=== PATIENT | female | born 1970 | race African-American/Black ===

== ENCOUNTER 2019-03-08 16:21 | Inpatient (IN) | payer OTHER ==
--- NOTE | 2019-03-08 19:05 | HP ---
CIWA Score Nausea/Vomitin-No Nausea/No Vomiting Muscle Tremors: 3 Anxiety: 3 Agitation: 4-Moderately Restless Paroxysmal Sweats: No Perspiration Orientation: 0-Oriented Tacttile Disturbances: 0-None Auditory Disturbances: 0-None Visual Disturbances: 0-None Headache: 0-None Present CIWA-Ar Total Score: 10 - Admission Criteria OASAS Guidelines: Admission for Medically Managed Detox: Requires at least one of the followin. CIWA greater than 12 2. Seizures within the past 24 hours 3. Delirium tremens within the past 24 hours 4. Hallucinations within the past 24 hours 5. Acute intervention needed for co occurring medical disorder 6. Acute intervention needed for co occurring psychiatric disorder 7. Severe withdrawal that cannot be handled at a lower level of care (continued vomiting, continued diarrhea, abnormal vital signs) requiring intravenous medication and/or fluids 8. Admission ROS S - HPI Allergies/Adverse Reactions: Allergies Allergy/AdvReac Type Severity Reaction Status Date / Time shellfish derived AdvReac Severe Difficulty Verified 03/08/19 17:29 Breathing History of Present Illness: pt here requesting detox from etoh use , claims 4 pints and 2 x 6-pk beer/ day , starts drinking in the mornings, relpased since 2012 , prior sobriety x 10 years . PMHX : asthma, eczema h/o + PPD w/ tx 1998 Exam Limitations: Clinical Condition - Ebola screening Have you traveled outside of the country in the last 21 days: No (N) Have you had contact with anyone from an Ebola affected area: No Do you have a fever: No - Review of Systems Constitutional: No Symptoms Reported EENT: reports: No Symptoms Reported Respiratory: reports: No Symptoms reported Cardiac: reports: No Symptoms Reported GI: reports: No Symptoms Reported : reports: No Symptoms Reported, Other (h/o tx for syphyllis @ age 11) Musculoskeletal: reports: No Symptoms Reported Integumentary: reports: Dryness Neuro: reports: Tremors Endocrine: reports: No Symptoms Reported Psychiatric: reports: Orientated x3, Agitated, Anxious Patient History - Smoking Cessation Smoking history: Current every day smoker Have you smoked in the past 12 months: Yes Hx Chewing Tobacco Use: No Initiated information on smoking cessation: No - Substances abused Alcohol Substance route: Oral Frequency: Daily Amount used: 4 PINTS VODKA AND 2 6- PACK beer Age of first use: 11 Date of last use: 03/08/19 Crack Substance route: Smoking Frequency: Daily Amount used: $200/DAY Age of first use: 12 Date of last use: 03/06/19 Marijuana/Hashish Substance route: Oral Frequency: Daily Amount used: $20/DAY Age of first use: 7 Date of last use: 03/01/19 Admission Physical Exam BHS - Vital Signs Vital Signs: Vital Signs - 24 hr 03/08/19 17:28 Temperature 98.8 F Pulse Rate 106 H Respiratory 18 Rate Blood Pressure 135/87 - Physical General Appearance: Yes: Mild Distress, Anxious HEENTM: Yes: EOMI, Hearing grossly Normal, Normocephalic, Muffled/Hoarse Voice, Other (poor dentition , many missing teeth) Respiratory: Yes: Chest Non-Tender, Lungs Clear, Normal Breath Sounds, No Respiratory Distress, No Accessory Muscle Use Neck: Yes: No masses,lesions,Nodules, Trachea in good position Cardiology: Yes: Regular Rhythm, Regular Rate, S1, S2, Tachycardia Abdominal: Yes: Non Tender, Soft Musculoskeletal: Yes: Gait Steady Extremities: Yes: Normal Range of Motion, Non-Tender, Tremors Neurological: Yes: Fully Oriented, Alert, Motor Strength 5/5, Depressed Affect Integumentary: Yes: Dry, Warm - Diagnostic (1) Alcohol use disorder Current Visit: Yes Status: Chronic Breathalyzer - Breathalyzer Breathalyzer: 0.002 Urine Drug Screen - Test Device Lot number: [id number] Expiration date: 09/16/20 - Control Is test valid?: Yes - Results Drug screen NEGATIVE: No Urine drug screen results: THC-Marijuana, HAI-Cocaine, BZO-Benzodiazepines Inpatient Rehab Admission - Rehab Decision to Admit Inpatient rehab admission?: No
[2019-03-08] MEDS ORDERED: BISMUTH SUBSALICYLATE 524 MG/30 ML UD PO PRN (19:09)
[2019-03-08] MEDS ORDERED: MAGNESIUM HYDROX 2400MG/30ML ORAL SUSPENSION 30 ML CUP PO PRN (19:09)
[2019-03-08] MEDS ORDERED: MAGNESIUM CITRATE 300 ML BOTTLE PO PRN (19:09)
[2019-03-08] MEDS ORDERED: ACETAMINOPHEN 325 MG TABLET (FP) PO PRN ×2 (19:09)
[2019-03-08] MEDS ORDERED: MAG HYDROX/AL HYDROX/SIMETH 30 ML UNIT-DOSE CUP PO PRN (19:09)
[2019-03-08] MEDS ORDERED: MENTHOL/PHENOL 1 EACH UD MM PRN (19:09)
[2019-03-08] MEDS ORDERED: MELATONIN 5 MG TABLETS PO PRN (19:09)
[2019-03-08] MEDS ORDERED: hydrOXYzine PAMOATE 25 MG CAPSULE (FP) PO PRN (19:09)
[2019-03-08] MEDS ORDERED: chlordiazePOXIDE HCL 10 MG CAPSULE PO PRN (19:11)
[2019-03-08] MEDS: THIAMINE HCL 100 MG TABLET (FP) PO SCH (22:19)
[2019-03-08] MEDS: chlordiazePOXIDE HCL 25 MG CAPSULE PO SCH (22:19)
[2019-03-08] MEDS: TOLNAFTATE 1% CREAM 15 GM TUBE TP SCH (22:19)
[2019-03-09] MEDS: chlordiazePOXIDE HCL 25 MG CAPSULE PO SCH ×3 (05:34→22:12)
[2019-03-09 09:29] LABS: HEMATOCRIT 39.5 % (32.4-45.2); MCH 31.1 pg (25.7-33.7); MCHC 32.9 g/dl (32.0-36.0); MEAN CELL VOLUME 94.5 fl (80-96); MEAN PLT VOLUME 7.7 fl (7.5-11.1); PLATELET COUNT 200 K/MM3 (134-434); RBC 4.18 M/mm3 (3.60-5.2)
--- NOTE | 2019-03-09 09:37 | PN ---
S CIWA - CIWA Score Nausea/Vomitin-Mild Nausea/No Vomiting Muscle Tremors: 2 Anxiety: 3 Agitation: 1-Slight > Activity Paroxysmal Sweats: 2 Orientation: 0-Oriented Tacttile Disturbances: 0-None Auditory Disturbances: 0-None Visual Disturbances: 1-Very Mild Sensitivity Headache: 2-Mild CIWA-Ar Total Score: 12 BHS Progress Note (SOAP) Subjective: 49 years old female admitted on 03/07/19 for alcohol withdrawal sx management treating with librium detox regimen feeling ok today less tremor but anxious and restlessness feeling tired limited conversation with staff Objective: 03/09/19 09:36 Vital Signs Temperature 99.5 F 03/09/19 09:12 Pulse Rate 97 H 03/09/19 09:12 Respiratory Rate 18 03/09/19 09:12 Blood Pressure 112/74 03/09/19 09:12 O2 Sat by Pulse Oximetry (%) Laboratory Last Values WBC 6.0 K/mm3 (4.0-10.0) 03/09/19 07:45 RBC 4.18 M/mm3 (3.60-5.2) 03/09/19 07:45 Hgb 13.0 GM/dL (10.7-15.3) 03/09/19 07:45 Hct 39.5 % (32.4-45.2) 03/09/19 07:45 MCV 94.5 fl (80-96) 03/09/19 07:45 MCH 31.1 pg (25.7-33.7) 03/09/19 07:45 MCHC 32.9 g/dl (32.0-36.0) 03/09/19 07:45 RDW 15.0 % (11.6-15.6) 03/09/19 07:45 Plt Count 200 K/MM3 (134-434) 03/09/19 07:45 MPV 7.7 fl (7.5-11.1) 03/09/19 07:45 lab noted Assessment: 03/09/19 09:37 alcohol withdrawal Plan: librium regimen
[2019-03-09] MEDS: TOLNAFTATE 1% CREAM 15 GM TUBE TP SCH ×2 (10:02→22:10)
[2019-03-09] MEDS: PRENATAL VITAMINS W/ FOLIC ACID TABLET (FP) PO SCH (10:02)
[2019-03-09] MEDS: HYDROCORTISONE 0.5% TOPICAL OINTMENT TUBE TP PRN (10:02)
[2019-03-09] MEDS: ALBUTEROL SO4 HFA INHALER IH PRN ×2 (10:03→22:11)
[2019-03-09 11:05] LABS: ALBUMIN 3.2 g/dl (3.4-5.0); BILIRUBIN,TOTAL 0.3 mg/dL (0.2-1); CALCIUM 8.4 mg/dL (8.5-10.1); CREATININE 1.1 mg/dL (0.55-1.3); POTASSIUM 3.9 mmol/L (3.5-5.1); TOT PROT 6.2 g/dl (6.4-8.2)
[2019-03-09] MEDS: THIAMINE HCL 100 MG TABLET (FP) PO SCH (22:12)
[2019-03-10] MEDS: chlordiazePOXIDE HCL 10 MG CAPSULE PO SCH ×3 (05:08→22:03)
[2019-03-10] MEDS: ALBUTEROL SO4 HFA INHALER IH PRN ×3 (05:09→22:51)
--- NOTE | 2019-03-10 09:10 | PN ---
S CIWA - CIWA Score Nausea/Vomitin-No Nausea/No Vomiting Muscle Tremors: 2 Anxiety: 2 Agitation: 2 Paroxysmal Sweats: 1-Minimal Palms Moist Orientation: 0-Oriented Tacttile Disturbances: 0-None Auditory Disturbances: 0-None Visual Disturbances: 0-None Headache: 2-Mild CIWA-Ar Total Score: 9 BHS Progress Note (SOAP) Subjective: 49 years old female admitted on 03/08/19 for alcohol withdrawal sx management treating with librium detox regimen feeling better today able to sleep through the night less tremor patient reflects insight to manage stresses Objective: 03/10/19 09:09 Vital Signs Temperature 99.4 F 03/10/19 09:05 Pulse Rate 86 03/10/19 09:05 Respiratory Rate 18 03/10/19 09:05 Blood Pressure 139/85 03/10/19 09:05 O2 Sat by Pulse Oximetry (%) Laboratory Last Values WBC 6.0 K/mm3 (4.0-10.0) 03/09/19 07:45 RBC 4.18 M/mm3 (3.60-5.2) 03/09/19 07:45 Hgb 13.0 GM/dL (10.7-15.3) 03/09/19 07:45 Hct 39.5 % (32.4-45.2) 03/09/19 07:45 MCV 94.5 fl (80-96) 03/09/19 07:45 MCH 31.1 pg (25.7-33.7) 03/09/19 07:45 MCHC 32.9 g/dl (32.0-36.0) 03/09/19 07:45 RDW 15.0 % (11.6-15.6) 03/09/19 07:45 Plt Count 200 K/MM3 (134-434) 03/09/19 07:45 MPV 7.7 fl (7.5-11.1) 03/09/19 07:45 Sodium 141 mmol/L (136-145) 03/09/19 07:45 Potassium 3.9 mmol/L (3.5-5.1) 03/09/19 07:45 Chloride 108 mmol/L (98-107) H 03/09/19 07:45 Carbon Dioxide 27 mmol/L (21-32) 03/09/19 07:45 Anion Gap 6 MMOL/L (8-16) L 03/09/19 07:45 BUN 22.0 mg/dL (7-18) H 03/09/19 07:45 Creatinine 1.1 mg/dL (0.55-1.3) 03/09/19 07:45 Est GFR (CKD-EPI)AfAm 67.32 03/09/19 07:45 Est GFR (CKD-EPI)NonAf 58.08 03/09/19 07:45 Random Glucose 180 mg/dL (74-106) H 03/09/19 07:45 Calcium 8.4 mg/dL (8.5-10.1) L 03/09/19 07:45 Total Bilirubin 0.3 mg/dL (0.2-1) 03/09/19 07:45 AST 22 U/L (15-37) 03/09/19 07:45 ALT 21 U/L (13-61) 03/09/19 07:45 Alkaline Phosphatase 133 U/L (45-117) H 03/09/19 07:45 Total Protein 6.2 g/dl (6.4-8.2) L 03/09/19 07:45 Albumin 3.2 g/dl (3.4-5.0) L 03/09/19 07:45 POC Urine HCG, Qual Negative 03/08/19 18:16 RPR Titer Nonreactive (NONREACTIVE) 03/09/19 07:45 lab noted Assessment: 03/10/19 09:09 alcohol withdrawal Plan: librium regiment
[2019-03-10] MEDS: PRENATAL VITAMINS W/ FOLIC ACID TABLET (FP) PO SCH (10:05)
[2019-03-10] MEDS: TOLNAFTATE 1% CREAM 15 GM TUBE TP SCH ×2 (10:06→22:02)
[2019-03-10] MEDS: HYDROCORTISONE 0.5% TOPICAL OINTMENT TUBE TP PRN (10:07)
--- NOTE | 2019-03-10 16:55 | PN ---
[facility] Progress Note Note: Patient was seen and evaluated at bedside with complaint of slight swelling to right chin with minimal discomfort. She reports pain at 2/10 and tolerable. Vital Signs Temperature 98.4 F 03/10/19 16:59 Pulse Rate 85 03/10/19 16:59 Respiratory Rate 18 03/10/19 16:59 Blood Pressure 129/82 03/10/19 16:59 O2 Sat by Pulse Oximetry (%) Action: Tylenol as needed Patient encouraged not to pick pimples on the face Keep area clean and dry. Use of hand artificial stone setter encouraged
[2019-03-10] MEDS: IBUPROFEN 400 MG TABLET (FP) PO PRN (17:51)
[2019-03-10] MEDS: THIAMINE HCL 100 MG TABLET (FP) PO SCH (22:03)
[2019-03-11] MEDS ORDERED: chlordiazePOXIDE HCL 10 MG CAPSULE PO ONE (05:00)
[2019-03-11] MEDS: IBUPROFEN 400 MG TABLET (FP) PO PRN (05:13)
[2019-03-11 06:58] VITALS: BP 101/66; PULSE 90; TEMP 96.5
[2019-03-11] MEDS: ALBUTEROL SO4 HFA INHALER IH PRN (07:52)
--- NOTE | 2019-03-11 09:25 | DS ---
[facility] Detox Discharge Summary Admission Date: 03/08/19 Discharge Date: 03/11/19 - History Present History: Alcohol Dependence Additional Comments: 49 years old female admitted on 03/08/19 for alcohol withdrawal sx management treated with librium detox regiment right chin swell seen by medical provider denies right chin discomfort today no swell noted speech clearly coherently ate breakfast no trouble chewing food nor drinking fluid patient has completed librium regimen and tolerated well alert oriented x 3 respiratory clear lungs bilaterally on auscultation extremities full range of motion skin warm and dry Pertinent Past History: patient agrees to consider return to [facility] - Physical Exam Results Vital Signs: Vital Signs Temperature 96.5 F L 03/11/19 06:57 Pulse Rate 90 03/11/19 06:57 Respiratory Rate 18 03/11/19 06:57 Blood Pressure 101/66 03/11/19 06:57 O2 Sat by Pulse Oximetry (%) Pertinent Admission Physical Exam Findings: alcohol withdrawal Laboratory Last Values WBC 6.0 K/mm3 (4.0-10.0) 03/09/19 07:45 RBC 4.18 M/mm3 (3.60-5.2) 03/09/19 07:45 Hgb 13.0 GM/dL (10.7-15.3) 03/09/19 07:45 Hct 39.5 % (32.4-45.2) 03/09/19 07:45 MCV 94.5 fl (80-96) 03/09/19 07:45 MCH 31.1 pg (25.7-33.7) 03/09/19 07:45 MCHC 32.9 g/dl (32.0-36.0) 03/09/19 07:45 RDW 15.0 % (11.6-15.6) 03/09/19 07:45 Plt Count 200 K/MM3 (134-434) 03/09/19 07:45 MPV 7.7 fl (7.5-11.1) 03/09/19 07:45 Sodium 141 mmol/L (136-145) 03/09/19 07:45 Potassium 3.9 mmol/L (3.5-5.1) 03/09/19 07:45 Chloride 108 mmol/L (98-107) H 03/09/19 07:45 Carbon Dioxide 27 mmol/L (21-32) 03/09/19 07:45 Anion Gap 6 MMOL/L (8-16) L 03/09/19 07:45 BUN 22.0 mg/dL (7-18) H 03/09/19 07:45 Creatinine 1.1 mg/dL (0.55-1.3) 03/09/19 07:45 Est GFR (CKD-EPI)AfAm 67.32 03/09/19 07:45 Est GFR (CKD-EPI)NonAf 58.08 03/09/19 07:45 Random Glucose 180 mg/dL (74-106) H 03/09/19 07:45 Calcium 8.4 mg/dL (8.5-10.1) L 03/09/19 07:45 Total Bilirubin 0.3 mg/dL (0.2-1) 03/09/19 07:45 AST 22 U/L (15-37) 03/09/19 07:45 ALT 21 U/L (13-61) 03/09/19 07:45 Alkaline Phosphatase 133 U/L (45-117) H 03/09/19 07:45 Total Protein 6.2 g/dl (6.4-8.2) L 03/09/19 07:45 Albumin 3.2 g/dl (3.4-5.0) L 03/09/19 07:45 POC Urine HCG, Qual Negative 03/08/19 18:16 RPR Titer Nonreactive (NONREACTIVE) 03/09/19 07:45 lab noted - Treatment Hospital Course: Detox Protocol Followed, Detoxed Safely, Responded well, Discharged Condition Good, Rehab Referral Accepted Patient has Accepted a Re[facility] Referral to: [facility] - Medication Discharge Medications: Ambulatory Orders NK [No Known Home Medication] 03/08/19 - Diagnosis (1) Alcohol dependence with withdrawal, uncomplicated Status: Acute - AMA Did Patient Leave Against Medical Advice: No CIWA Score - CIWA Score Nausea/Vomitin-No Nausea/No Vomiting Muscle Tremors: 1-None Visible, but [place] Anxiety: 1-Mildly Anxious Agitation: 1-Slight > Activity Paroxysmal Sweats: No Perspiration Orientation: 0-Oriented Tacttile Disturbances: 0-None Auditory Disturbances: 0-None Visual Disturbances: 0-None Headache: 2-Mild CIWA-Ar Total Score: 5
== END 2019-03-11 08:42 | disposition home or self-care (01) | DRG 774 ==
LOC: YASAS 16:21 → Y3N 19:20
PROVIDERS: ADMIT Allergy & Immunology; ATTEND Allergy & Immunology
PROC: HZ2ZZZZ Detoxification Services for Substance Abuse Treatment (ICD-10-PCS; principal; 2019-03-08)
DX: F10.230 Alcohol dependence with withdrawal, uncomplicated (principal); F14.20 Cocaine dependence, uncomplicated; F12.20 Cannabis dependence, uncomplicated; F17.210 Nicotine dependence, cigarettes, uncomplicated; Z91.013 Allergy to seafood
CPT/HCPCS: 36415; 71045-TC-FY; 80053; 81025; 85027; 86593

== ENCOUNTER 2021-03-31 13:39 | Inpatient (IN) | payer OTHER ==
[2021-03-31 15:25] VITALS: BMI 37.3
[2021-03-31] MEDS ORDERED: MAG HYDROX/AL HYDROX/SIMETH 30 ML UNIT-DOSE CUP PO PRN (20:44)
[2021-03-31] MEDS ORDERED: ONDANSETRON *ODT* 4 MG TABLET SL PRN (20:44)
[2021-03-31] MEDS ORDERED: MAGNESIUM HYDROX 2400MG/30ML ORAL SUSPENSION 30 ML CUP PO PRN (20:44)
[2021-03-31] MEDS ORDERED: ACETAMINOPHEN 325 MG TABLET (FP) PO PRN ×2 (20:44)
[2021-03-31] MEDS ORDERED: NICOTINE POLACRILEX 2 MG GUM BUC PRN (20:44)
[2021-03-31] MEDS ORDERED: LOPERAMIDE HCL 2 MG CAPSULE PO PRN (20:44)
[2021-03-31] MEDS ORDERED: chlordiazePOXIDE HCL 25 MG CAPSULE PO PRN (20:44)
[2021-03-31] MEDS ORDERED: MELATONIN 5 MG TABLETS PO PRN (20:44)
[2021-03-31] MEDS ORDERED: BISMUTH SUBSALICYLATE 524 MG/30 ML PO PRN (20:44)
[2021-03-31] MEDS ORDERED: MENTHOL/PHENOL 1 EACH UD MM PRN (20:44)
[2021-03-31] MEDS ORDERED: IBUPROFEN 400 MG TABLET (FP) PO PRN (20:44)
[2021-03-31] MEDS ORDERED: MAGNESIUM CITRATE 300 ML BOTTLE PO PRN (20:44)
[2021-03-31] MEDS: THIAMINE HCL 100 MG TABLET (FP) PO SCH (22:34)
[2021-03-31] MEDS: chlordiazePOXIDE HCL 25 MG CAPSULE PO SCH (22:35)
[2021-04-01] MEDS: chlordiazePOXIDE HCL 25 MG CAPSULE PO SCH ×3 (06:41→17:43)
[2021-04-01] MEDS: INSULIN SLIDING SCALE (NOVOLOG) 1 VIAL SQ SCH ×3 (06:54→17:46)
[2021-04-01] MEDS ORDERED: BUDESONIDE/FORMETEROL FUMARATE 160/4.5 mcg INHALER IH SCH (10:00)
[2021-04-01] MEDS: METHOCARBAMOL 500 MG TABLET PO PRN (11:05)
[2021-04-01] MEDS: PRENATAL VITAMINS W/ FOLIC ACID TABLET (FP) PO SCH (11:05)
[2021-04-01 11:16] LABS: HEMATOCRIT 42.5 % (32.4-45.2); HEMOGLOBIN 13.6 GM/dL (10.7-15.3); MCH 29.7 pg (25.7-33.7); MEAN PLT VOLUME 7.9 fl (7.5-11.1); PLATELET COUNT 211 10^3/uL (134-434); RBC 4.57 M/mm3 (3.60-5.2); RDW 14.5 % (11.6-15.6); WHITE BLOOD COUNT 4.9 K/mm3 (4.0-10.0)
[2021-04-01 11:26] LABS: ALBUMIN 3.4 g/dl (3.4-5.0); BLOOD UREA NITROGEN 14.3 mg/dL (7-18); CALCIUM 8.8 mg/dL (8.5-10.1)
[2021-04-01 11:30] LABS: BILIRUBIN,TOTAL 0.3 mg/dL (0.2-1); TOT PROT 6.5 g/dl (6.4-8.2)
[2021-04-01] MEDS: metFORMIN HCL 500 MG TABLET (FP) PO SCH (17:44)
[2021-04-01] MEDS: THIAMINE HCL 100 MG TABLET (FP) PO SCH (23:34)
[2021-04-02] MEDS: chlordiazePOXIDE HCL 25 MG CAPSULE PO SCH ×3 (00:10→10:20)
[2021-04-02] MEDS: metFORMIN HCL 500 MG TABLET (FP) PO SCH ×2 (06:09→17:48)
[2021-04-02] MEDS: INSULIN SLIDING SCALE (NOVOLOG) 1 VIAL SQ SCH ×3 (06:10→16:40)
[2021-04-02] MEDS: PRENATAL VITAMINS W/ FOLIC ACID TABLET (FP) PO SCH (10:17)
[2021-04-02] MEDS: NICOTINE 10 MG CARTRIDGE (INHALER) IH PRN ×3 (10:30→20:05)
[2021-04-02] MEDS ORDERED: chlordiazePOXIDE HCL 25 MG CAPSULE PO SCH ×2 (17:00→23:00)
[2021-04-02] MEDS ORDERED: INSULIN (NOVOLOG) ASPART 100 UNITS/ML 10ML VIAL ONE (17:02)
[2021-04-02] MEDS ORDERED: chlordiazePOXIDE HCL 10 MG CAPSULE PO SCH (23:00)
[2021-04-02] MEDS: THIAMINE HCL 100 MG TABLET (FP) PO SCH (23:30)
[2021-04-03] MEDS ORDERED: chlordiazePOXIDE HCL 10 MG CAPSULE PO PRN
[2021-04-03] MEDS: ALBUTEROL SO4 HFA INHALER IH PRN ×2 (05:54→22:17)
[2021-04-03] MEDS: chlordiazePOXIDE HCL 10 MG CAPSULE PO SCH ×4 (05:58→22:18)
[2021-04-03] MEDS: INSULIN SLIDING SCALE (NOVOLOG) 1 VIAL SQ SCH ×3 (05:59→16:23)
[2021-04-03] MEDS: metFORMIN HCL 500 MG TABLET (FP) PO SCH ×2 (05:59→16:00)
[2021-04-03] MEDS: PRENATAL VITAMINS W/ FOLIC ACID TABLET (FP) PO SCH (10:03)
[2021-04-03] MEDS: NICOTINE 10 MG CARTRIDGE (INHALER) IH PRN ×2 (13:22→18:00)
[2021-04-03 14:10] LABS: SARS-CoV-2 NAA Not Detected (Not Detected)
[2021-04-03] MEDS: THIAMINE HCL 100 MG TABLET (FP) PO SCH (22:17)
[2021-04-04] MEDS: chlordiazePOXIDE HCL 10 MG CAPSULE PO SCH ×2 (06:43→18:03)
[2021-04-04] MEDS: metFORMIN HCL 500 MG TABLET (FP) PO SCH ×2 (06:43→18:26)
[2021-04-04] MEDS: INSULIN SLIDING SCALE (NOVOLOG) 1 VIAL SQ SCH ×3 (06:45→17:04)
[2021-04-04] MEDS: METHOCARBAMOL 500 MG TABLET PO PRN (10:48)
[2021-04-04] MEDS: PRENATAL VITAMINS W/ FOLIC ACID TABLET (FP) PO SCH (10:48)
[2021-04-04] MEDS: ALBUTEROL SO4 HFA INHALER IH PRN (10:50)
[2021-04-04] MEDS: NICOTINE 10 MG CARTRIDGE (INHALER) IH PRN ×2 (15:21→22:30)
[2021-04-05] MEDS: THIAMINE HCL 100 MG TABLET (FP) PO SCH (00:40)
[2021-04-05] MEDS ORDERED: chlordiazePOXIDE HCL 10 MG CAPSULE PO ONE (05:00)
[2021-04-05] MEDS: metFORMIN HCL 500 MG TABLET (FP) PO SCH (07:25)
[2021-04-05] MEDS: INSULIN SLIDING SCALE (NOVOLOG) 1 VIAL SQ SCH (07:32)
[2021-04-05 09:11] VITALS: BP 121/80; PULSE 78; TEMP 97.8
== END 2021-04-05 09:13 | disposition home or self-care (01) | DRG 774 ==
LOC: YASAS 13:39 → Y6N 21:04
PROVIDERS: ADMIT Allergy & Immunology; ATTEND Allergy & Immunology
PROC: HZ2ZZZZ Detoxification Services for Substance Abuse Treatment (ICD-10-PCS; principal; 2021-03-31)
DX: F10.230 Alcohol dependence with withdrawal, uncomplicated (principal); F14.20 Cocaine dependence, uncomplicated; F12.20 Cannabis dependence, uncomplicated; F17.210 Nicotine dependence, cigarettes, uncomplicated; F31.9 Bipolar disorder, unspecified; H55.00 Unspecified nystagmus; E11.9 Type 2 diabetes mellitus without complications; Z79.84 Long term (current) use of oral hypoglycemic drugs; E66.9 Obesity, unspecified; Z68.37 Body mass index [BMI] 37.0-37.9, adult; Z86.11 Personal history of tuberculosis; Z86.19 Personal history of other infectious and parasitic diseases; Z91.013 Allergy to seafood
CPT/HCPCS: 36415; 80053; 81025; 82962; 85027; 86593; 86780; C9803; U0003; U0005

== ENCOUNTER 2022-01-23 10:59 | Inpatient (IN) | payer OTHER ==
[2022-01-23 13:06] VITALS: BMI 32.8
[2022-01-23] MEDS ORDERED: BENZOCAINE/MENTHOL (CHLORASEPTIC ) LOZENGE MM PRN (13:24)
[2022-01-23] MEDS ORDERED: hydrOXYzine PAMOATE 25 MG CAPSULE (FP) PO PRN (13:24)
[2022-01-23] MEDS ORDERED: NALOXONE HCL (KLOXXADO) 8 MG SPRAY NS PRN (13:24)
[2022-01-23] MEDS ORDERED: LOPERAMIDE HCL 2 MG CAPSULE PO PRN (13:24)
[2022-01-23] MEDS ORDERED: POLYETHYLENE GLYCOL (HEALTHYLAX) 3350 17 GM PACKET PO PRN (13:24)
[2022-01-23] MEDS ORDERED: DICYCLOMINE HCL 10 MG CAPSULE PO PRN (13:24)
[2022-01-23] MEDS ORDERED: chlordiazePOXIDE HCL 25 MG CAPSULE PO PRN (13:24)
[2022-01-23] MEDS ORDERED: ACETAMINOPHEN 325 MG TABLET (FP) PO PRN ×2 (13:24)
[2022-01-23] MEDS ORDERED: MAGNESIUM HYDROX 2400MG/30ML ORAL SUSPENSION 30 ML CUP PO PRN (13:24)
[2022-01-23] MEDS ORDERED: BISMUTH SUBSALICYLATE 524 MG/30 ML PO PRN (13:24)
[2022-01-23] MEDS ORDERED: IBUPROFEN 400 MG TABLET (FP) PO PRN (13:24)
[2022-01-23] MEDS ORDERED: MAG HYDROX/AL HYDROX/SIMETH 30 ML UNIT-DOSE CUP PO PRN (13:24)
[2022-01-23] MEDS ORDERED: ONDANSETRON *ODT* 4 MG TABLET SL PRN (13:24)
[2022-01-23] MEDS: PRENATAL VITAMINS W/ FOLIC ACID TABLET (FP) PO SCH (15:30)
[2022-01-23] MEDS: ALBUTEROL SO4 HFA INHALER IH SCH ×3 (15:30→23:36)
[2022-01-23] MEDS: BUDESONIDE/FORMETEROL FUMARATE 160/4.5 mcg INHALER IH SCH ×2 (15:30→22:12)
[2022-01-23] MEDS: NICOTINE 14 MG/24 HOURS TOPICAL PATCH TD SCH (15:30)
[2022-01-23] MEDS: chlordiazePOXIDE HCL 25 MG CAPSULE PO SCH ×2 (18:07→23:37)
[2022-01-23] MEDS: METHOCARBAMOL 500 MG TABLET PO PRN (18:10)
[2022-01-23] MEDS: metFORMIN HCL 500 MG TABLET (FP) PO SCH (18:10)
[2022-01-23] MEDS: THIAMINE HCL 100 MG TABLET (FP) PO SCH (22:14)
[2022-01-23] MEDS: MELATONIN 5 MG TABLETS PO SCH (23:35)
[2022-01-24] MEDS: metFORMIN HCL 500 MG TABLET (FP) PO SCH ×2 (06:26→16:47)
[2022-01-24] MEDS: chlordiazePOXIDE HCL 25 MG CAPSULE PO SCH ×4 (06:26→22:45)
[2022-01-24] MEDS: ALBUTEROL SO4 HFA INHALER IH SCH ×4 (10:24→22:44)
[2022-01-24] MEDS: BUDESONIDE/FORMETEROL FUMARATE 160/4.5 mcg INHALER IH SCH ×2 (10:24→22:43)
[2022-01-24] MEDS: NICOTINE 14 MG/24 HOURS TOPICAL PATCH TD SCH (10:24)
[2022-01-24] MEDS: PRENATAL VITAMINS W/ FOLIC ACID TABLET (FP) PO SCH (10:24)
[2022-01-24] MEDS: NICOTINE 10 MG CARTRIDGE (INHALER) IH PRN (10:25)
[2022-01-24 10:28] LABS: HEMATOCRIT 45.4 % (32.4-45.2); HEMOGLOBIN 14.7 GM/dL (10.7-15.3); MCH 30.6 pg (25.7-33.7); MCHC 32.3 g/dl (32.0-36.0); MEAN CELL VOLUME 94.5 fl (80-96); MEAN PLT VOLUME 8.1 fl (7.5-11.1); PLATELET COUNT 243 10^3/uL (134-434); RBC 4.81 M/mm3 (3.60-5.2); RDW 14.1 % (11.6-15.6); WHITE BLOOD COUNT 6.7 K/mm3 (4.0-10.0)
[2022-01-24 11:13] LABS: CALCIUM 9.5 mg/dL (8.5-10.1)
[2022-01-24 11:15] LABS: ALBUMIN 3.5 g/dl (3.4-5.0); BLOOD UREA NITROGEN 18.4 mg/dL (7-18)
[2022-01-24 11:18] LABS: CREATININE 1.1 mg/dL (0.55-1.3)
[2022-01-24 11:20] LABS: BILIRUBIN,TOTAL 0.4 mg/dL (0.2-1); TOT PROT 6.9 g/dl (6.4-8.2)
[2022-01-24] MEDS: BENZTROPINE MESYLATE 1 MG TABLET PO SCH ×2 (11:31→22:44)
[2022-01-24] MEDS: risperiDONE 1 MG TABLET PO SCH ×2 (11:31→22:44)
[2022-01-24] MEDS: MELATONIN 5 MG TABLETS PO SCH (22:42)
[2022-01-24] MEDS: THIAMINE HCL 100 MG TABLET (FP) PO SCH (22:44)
[2022-01-25] MEDS ORDERED: chlordiazePOXIDE HCL 25 MG CAPSULE PO SCH (05:00)
[2022-01-25] MEDS: metFORMIN HCL 500 MG TABLET (FP) PO SCH ×2 (06:32→17:40)
[2022-01-25] MEDS: PRENATAL VITAMINS W/ FOLIC ACID TABLET (FP) PO SCH (10:03)
[2022-01-25] MEDS: NICOTINE 14 MG/24 HOURS TOPICAL PATCH TD SCH (10:04)
[2022-01-25] MEDS: BENZTROPINE MESYLATE 1 MG TABLET PO SCH ×2 (10:04→22:26)
[2022-01-25] MEDS: risperiDONE 1 MG TABLET PO SCH ×2 (10:04→22:26)
[2022-01-25] MEDS: IBUPROFEN 600 MG TABLET (FP) PO PRN ×2 (10:05→20:50)
[2022-01-25] MEDS: METHOCARBAMOL 500 MG TABLET PO PRN ×2 (10:05→20:51)
[2022-01-25] MEDS: ALBUTEROL SO4 HFA INHALER IH SCH ×4 (10:07→22:31)
[2022-01-25] MEDS: BUDESONIDE/FORMETEROL FUMARATE 160/4.5 mcg INHALER IH SCH ×2 (10:07→22:31)
[2022-01-25] MEDS: chlordiazePOXIDE 5 MG CAPSULE PO SCH ×3 (11:02→22:27)
[2022-01-25] MEDS: MELATONIN 5 MG TABLETS PO SCH (22:27)
[2022-01-25] MEDS: THIAMINE HCL 100 MG TABLET (FP) PO SCH (22:31)
[2022-01-26] MEDS ORDERED: chlordiazePOXIDE HCL 10 MG CAPSULE PO PRN
[2022-01-26] MEDS: chlordiazePOXIDE HCL 10 MG CAPSULE PO SCH ×4 (05:55→23:57)
[2022-01-26] MEDS: metFORMIN HCL 500 MG TABLET (FP) PO SCH ×2 (06:20→17:51)
[2022-01-26] MEDS: BUDESONIDE/FORMETEROL FUMARATE 160/4.5 mcg INHALER IH SCH ×2 (10:19→22:36)
[2022-01-26] MEDS: BENZTROPINE MESYLATE 1 MG TABLET PO SCH ×2 (10:20→22:34)
[2022-01-26] MEDS: risperiDONE 1 MG TABLET PO SCH ×2 (10:20→22:34)
[2022-01-26] MEDS: PRENATAL VITAMINS W/ FOLIC ACID TABLET (FP) PO SCH (10:21)
[2022-01-26] MEDS: NICOTINE 14 MG/24 HOURS TOPICAL PATCH TD SCH (10:21)
[2022-01-26] MEDS: ALBUTEROL SO4 HFA INHALER IH SCH ×4 (10:24→22:36)
[2022-01-26] MEDS: MELATONIN 5 MG TABLETS PO SCH (22:36)
[2022-01-26] MEDS: THIAMINE HCL 100 MG TABLET (FP) PO SCH (22:36)
[2022-01-26] MEDS: NICOTINE 10 MG CARTRIDGE (INHALER) IH PRN (23:19)
[2022-01-27] MEDS: metFORMIN HCL 500 MG TABLET (FP) PO SCH ×2 (06:31→18:48)
[2022-01-27] MEDS: chlordiazePOXIDE HCL 10 MG CAPSULE PO SCH ×2 (06:31→18:46)
[2022-01-27] MEDS: BUDESONIDE/FORMETEROL FUMARATE 160/4.5 mcg INHALER IH SCH ×2 (10:12→23:38)
[2022-01-27] MEDS: PRENATAL VITAMINS W/ FOLIC ACID TABLET (FP) PO SCH (10:13)
[2022-01-27] MEDS: NICOTINE 14 MG/24 HOURS TOPICAL PATCH TD SCH (10:13)
[2022-01-27] MEDS: BENZTROPINE MESYLATE 1 MG TABLET PO SCH ×2 (10:13→23:36)
[2022-01-27] MEDS: risperiDONE 1 MG TABLET PO SCH ×2 (10:13→23:37)
[2022-01-27] MEDS: ALBUTEROL SO4 HFA INHALER IH SCH ×4 (10:14→23:38)
[2022-01-27] MEDS: METHOCARBAMOL 500 MG TABLET PO PRN (18:49)
[2022-01-27 22:43] VITALS: RESP 18
[2022-01-27] MEDS: MELATONIN 5 MG TABLETS PO SCH (23:36)
[2022-01-27] MEDS: THIAMINE HCL 100 MG TABLET (FP) PO SCH (23:38)
[2022-01-27] MEDS: NICOTINE 10 MG CARTRIDGE (INHALER) IH PRN (23:56)
[2022-01-28] MEDS ORDERED: chlordiazePOXIDE HCL 10 MG CAPSULE PO ONE (05:00)
[2022-01-28] MEDS: metFORMIN HCL 500 MG TABLET (FP) PO SCH (06:04)
[2022-01-28 09:48] VITALS: BP 128/84; PULSE 88; TEMP 98.2
[2022-01-28] MEDS: BUDESONIDE/FORMETEROL FUMARATE 160/4.5 mcg INHALER IH SCH (09:58)
[2022-01-28] MEDS: ALBUTEROL SO4 HFA INHALER IH SCH (09:58)
[2022-01-28] MEDS: risperiDONE 1 MG TABLET PO SCH (09:59)
[2022-01-28] MEDS: NICOTINE 14 MG/24 HOURS TOPICAL PATCH TD SCH (09:59)
[2022-01-28] MEDS: BENZTROPINE MESYLATE 1 MG TABLET PO SCH (09:59)
[2022-01-28] MEDS: PRENATAL VITAMINS W/ FOLIC ACID TABLET (FP) PO SCH (09:59)
== END 2022-01-28 10:21 | disposition home or self-care (01) | DRG 774 ==
LOC: YASAS 10:59 → Y3N 13:33
PROVIDERS: ADMIT Allergy & Immunology; ATTEND Surgery
PROC: HZ2ZZZZ Detoxification Services for Substance Abuse Treatment (ICD-10-PCS; principal; 2022-01-23)
DX: F10.230 Alcohol dependence with withdrawal, uncomplicated (principal); F14.20 Cocaine dependence, uncomplicated; F12.20 Cannabis dependence, uncomplicated; F17.210 Nicotine dependence, cigarettes, uncomplicated; F19.24 Other psychoactive substance dependence with psychoactive substance-induced mood disorder; F31.9 Bipolar disorder, unspecified; F20.9 Schizophrenia, unspecified; F39 Unspecified mood [affective] disorder; F41.9 Anxiety disorder, unspecified; E11.9 Type 2 diabetes mellitus without complications; Z79.84 Long term (current) use of oral hypoglycemic drugs; M17.11 Unilateral primary osteoarthritis, right knee; E66.9 Obesity, unspecified; Z68.32 Body mass index [BMI] 32.0-32.9, adult; Z89.021 Acquired absence of right finger(s); Z86.19 Personal history of other infectious and parasitic diseases; Z86.11 Personal history of tuberculosis; Z56.0 Unemployment, unspecified; Z59.00 Homelessness unspecified
CPT/HCPCS: 36415; 80053; 81025; 82140; 82962; 85027; 86593; 86780; 87811; C9803-CS; J2794; U0003; U0005

== ENCOUNTER 2022-12-27 15:04 | Inpatient (IN) | payer OTHER ==
[2022-12-27 17:37] VITALS: BMI 35.2
[2022-12-27] MEDS ORDERED: hydrOXYzine PAMOATE 25 MG CAPSULE (FP) PO PRN (18:55)
[2022-12-27] MEDS ORDERED: NICOTINE POLACRILEX 2 MG GUM BUC PRN (18:55)
[2022-12-27] MEDS ORDERED: IBUPROFEN 400 MG TABLET (FP) PO PRN (18:55)
[2022-12-27] MEDS ORDERED: NALOXONE HCL 0.4 MG/ML VIAL IM PRN (18:55)
[2022-12-27] MEDS ORDERED: DICYCLOMINE HCL 10 MG CAPSULE PO PRN (18:55)
[2022-12-27] MEDS ORDERED: NALOXONE HCL (KLOXXADO) 8 MG SPRAY NS PRN (18:55)
[2022-12-27] MEDS ORDERED: ONDANSETRON *ODT* 4 MG TABLET SL PRN (18:55)
[2022-12-27] MEDS ORDERED: BENZONATATE 200 MG CAPSULE PO PRN (18:55)
[2022-12-27] MEDS ORDERED: ACETAMINOPHEN 325 MG TABLET (FP) PO PRN (18:55)
[2022-12-27] MEDS ORDERED: METHOCARBAMOL 500 MG TABLET PO PRN (18:55)
[2022-12-27] MEDS ORDERED: IBUPROFEN 600 MG TABLET (FP) PO PRN (18:55)
[2022-12-27] MEDS ORDERED: guaiFENesin 600 MG TABLET.ER (FP) PO PRN (18:55)
[2022-12-27] MEDS ORDERED: MAG HYDROX/AL HYDROX/SIMETH 30 ML UNIT-DOSE CUP PO PRN (18:55)
[2022-12-27] MEDS ORDERED: chlordiazePOXIDE HCL 25 MG CAPSULE PO PRN (18:55)
[2022-12-27] MEDS ORDERED: MAGNESIUM HYDROX 2400MG/30ML ORAL SUSPENSION 30 ML CUP PO PRN (18:55)
[2022-12-27] MEDS ORDERED: POLYETHYLENE GLYCOL (HEALTHYLAX) 3350 17 GM PACKET PO PRN (18:55)
[2022-12-27] MEDS ORDERED: BISMUTH SUBSALICYLATE 524 MG/30 ML PO PRN (18:55)
[2022-12-27] MEDS ORDERED: LOPERAMIDE HCL 2 MG CAPSULE PO PRN (18:55)
[2022-12-27] MEDS ORDERED: BENZOCAINE/MENTHOL (CHLORASEPTIC ) LOZENGE MM PRN (18:55)
[2022-12-27] MEDS ORDERED: ALBUTEROL SO4 HFA INHALER IH PRN (19:59)
[2022-12-27] MEDS ORDERED: GABAPENTIN 400 MG CAPSULE PO SCH (22:00)
[2022-12-27] MEDS: THIAMINE HCL 100 MG TABLET (FP) PO SCH (22:19)
[2022-12-27] MEDS: GABAPENTIN 300 MG CAPSULE PO SCH (22:19)
[2022-12-27] MEDS: MELATONIN 5 MG TABLETS PO SCH (22:19)
[2022-12-27] MEDS: BUDESONIDE/FORMETEROL FUMARATE 160/4.5 mcg INHALER IH SCH (22:20)
[2022-12-27] MEDS: chlordiazePOXIDE HCL 25 MG CAPSULE PO SCH (22:20)
[2022-12-28] MEDS: chlordiazePOXIDE HCL 25 MG CAPSULE PO SCH ×4 (05:57→22:06)
[2022-12-28] MEDS: metFORMIN HCL 500 MG TABLET (FP) PO SCH ×2 (06:47→16:47)
[2022-12-28] MEDS: PRENATAL VITAMINS W/ FOLIC ACID TABLET (FP) PO SCH (10:20)
[2022-12-28] MEDS: GABAPENTIN 300 MG CAPSULE PO SCH ×2 (10:20→22:06)
[2022-12-28] MEDS: BUDESONIDE/FORMETEROL FUMARATE 160/4.5 mcg INHALER IH SCH ×2 (10:20→22:06)
[2022-12-28] MEDS: NICOTINE 14 MG/24 HOURS TOPICAL PATCH TD SCH (10:22)
[2022-12-28 16:04] LABS: CHLORIDE 108 mmol/L (98-107); POTASSIUM 3.8 mmol/L (3.5-5.1); SODIUM 142 mmol/L (136-145)
[2022-12-28 16:07] LABS: HEMOGLOBIN 13.2 GM/dL (10.7-15.3); MCH 30.7 pg (25.7-33.7); MCHC 33.8 g/dl (32.0-36.0); MEAN CELL VOLUME 90.9 fl (80-96); MEAN PLT VOLUME 7.7 fl (7.5-11.1); PLATELET COUNT 228 10^3/uL (134-434); RBC 4.29 M/mm3 (3.60-5.2); RDW 14.6 % (11.6-15.6); WHITE BLOOD COUNT 5.4 K/mm3 (4.0-10.0)
[2022-12-28 16:13] LABS: ALBUMIN 3.2 g/dl (3.4-5.0); CREATININE 0.9 mg/dL (0.55-1.3)
[2022-12-28 16:14] LABS: BLOOD UREA NITROGEN 13.5 mg/dL (7-18); TOT PROT 6.1 g/dl (6.4-8.2)
[2022-12-28 16:15] LABS: ALK PHOS 100 U/L (45-117); BILIRUBIN,TOTAL 0.2 mg/dL (0.2-1)
[2022-12-28 16:16] LABS: ANION GAP 6 mmol/L (4-13); CALCIUM 8.5 mg/dL (8.5-10.1); CO2 27 mmol/L (21-32); GLUCOSE,RANDOM 176 mg/dL (74-106); SGOT/AST 15 U/L (15-37)
[2022-12-28 16:17] LABS: SGPT/ALT 24 U/L (13-61)
[2022-12-28] MEDS: MELATONIN 5 MG TABLETS PO SCH (22:06)
[2022-12-28] MEDS: THIAMINE HCL 100 MG TABLET (FP) PO SCH (22:06)
[2022-12-29] MEDS: chlordiazePOXIDE HCL 25 MG CAPSULE PO SCH ×4 (05:50→22:17)
[2022-12-29] MEDS: metFORMIN HCL 500 MG TABLET (FP) PO SCH ×2 (06:05→17:20)
[2022-12-29] MEDS: PRENATAL VITAMINS W/ FOLIC ACID TABLET (FP) PO SCH (10:18)
[2022-12-29] MEDS: BUDESONIDE/FORMETEROL FUMARATE 160/4.5 mcg INHALER IH SCH ×2 (10:18→22:16)
[2022-12-29] MEDS: NICOTINE 14 MG/24 HOURS TOPICAL PATCH TD SCH (10:18)
[2022-12-29] MEDS: GABAPENTIN 300 MG CAPSULE PO SCH ×2 (10:20→22:16)
[2022-12-29] MEDS: MELATONIN 5 MG TABLETS PO SCH (22:16)
[2022-12-29] MEDS: THIAMINE HCL 100 MG TABLET (FP) PO SCH (22:17)
[2022-12-30] MEDS ORDERED: chlordiazePOXIDE HCL 10 MG CAPSULE PO PRN
[2022-12-30] MEDS: chlordiazePOXIDE HCL 10 MG CAPSULE PO SCH ×4 (05:49→22:13)
[2022-12-30] MEDS: metFORMIN HCL 500 MG TABLET (FP) PO SCH ×2 (06:06→17:12)
[2022-12-30] MEDS: BUDESONIDE/FORMETEROL FUMARATE 160/4.5 mcg INHALER IH SCH ×2 (10:24→22:15)
[2022-12-30] MEDS: GABAPENTIN 300 MG CAPSULE PO SCH ×2 (10:24→22:13)
[2022-12-30] MEDS: PRENATAL VITAMINS W/ FOLIC ACID TABLET (FP) PO SCH (10:26)
[2022-12-30] MEDS: NICOTINE 14 MG/24 HOURS TOPICAL PATCH TD SCH (10:26)
[2022-12-30] MEDS: MELATONIN 5 MG TABLETS PO SCH (22:13)
[2022-12-30] MEDS: THIAMINE HCL 100 MG TABLET (FP) PO SCH (22:15)
[2022-12-31] MEDS: chlordiazePOXIDE HCL 10 MG CAPSULE PO SCH ×2 (05:43→17:04)
[2022-12-31] MEDS: metFORMIN HCL 500 MG TABLET (FP) PO SCH ×2 (06:08→17:04)
[2022-12-31 08:39] VITALS: RESP 18
[2022-12-31] MEDS: BUDESONIDE/FORMETEROL FUMARATE 160/4.5 mcg INHALER IH SCH ×2 (10:19→22:47)
[2022-12-31] MEDS: GABAPENTIN 300 MG CAPSULE PO SCH ×2 (10:19→22:46)
[2022-12-31] MEDS: PRENATAL VITAMINS W/ FOLIC ACID TABLET (FP) PO SCH (10:19)
[2022-12-31] MEDS: NICOTINE 14 MG/24 HOURS TOPICAL PATCH TD SCH (10:49)
[2022-12-31] MEDS: BENZTROPINE MESYLATE 1 MG TABLET PO SCH ×2 (10:49→22:46)
[2022-12-31] MEDS: risperiDONE 1 MG TABLET PO SCH ×2 (10:50→22:46)
[2022-12-31] MEDS ORDERED: SUVOREXANT 10 MG TABLET PO PRN (22:00)
[2022-12-31] MEDS: THIAMINE HCL 100 MG TABLET (FP) PO SCH (22:46)
[2023-01-01] MEDS ORDERED: chlordiazePOXIDE HCL 10 MG CAPSULE PO ONE (05:00)
[2023-01-01] MEDS: metFORMIN HCL 500 MG TABLET (FP) PO SCH (06:06)
[2023-01-01 08:41] VITALS: BP 131/82; PULSE 89; TEMP 97.5
[2023-01-01] MEDS: BUDESONIDE/FORMETEROL FUMARATE 160/4.5 mcg INHALER IH SCH (09:18)
[2023-01-01] MEDS: GABAPENTIN 300 MG CAPSULE PO SCH (09:18)
[2023-01-01] MEDS: risperiDONE 1 MG TABLET PO SCH (09:18)
[2023-01-01] MEDS: BENZTROPINE MESYLATE 1 MG TABLET PO SCH (09:19)
[2023-01-01] MEDS: NICOTINE 14 MG/24 HOURS TOPICAL PATCH TD SCH (09:20)
[2023-01-01] MEDS: PRENATAL VITAMINS W/ FOLIC ACID TABLET (FP) PO SCH (09:20)
== END 2023-01-01 12:35 | disposition home or self-care (01) | DRG 774 ==
LOC: YASAS 15:04 → Y6N 19:48
PROVIDERS: ADMIT Allergy & Immunology; ATTEND Surgery
PROC: HZ2ZZZZ Detoxification Services for Substance Abuse Treatment (ICD-10-PCS; principal; 2022-12-27)
DX: F10.230 Alcohol dependence with withdrawal, uncomplicated (principal); F14.20 Cocaine dependence, uncomplicated; F17.210 Nicotine dependence, cigarettes, uncomplicated; F20.9 Schizophrenia, unspecified; F31.9 Bipolar disorder, unspecified; F19.280 Other psychoactive substance dependence with psychoactive substance-induced anxiety disorder; F19.282 Other psychoactive substance dependence with psychoactive substance-induced sleep disorder; I10 Essential (primary) hypertension; J45.909 Unspecified asthma, uncomplicated; E11.9 Type 2 diabetes mellitus without complications; Z79.84 Long term (current) use of oral hypoglycemic drugs; M17.0 Bilateral primary osteoarthritis of knee; Z86.11 Personal history of tuberculosis; Z56.0 Unemployment, unspecified; Z59.00 Homelessness unspecified
CPT/HCPCS: 36415; 71046-TC-FY; 80053; 80307; 82962; 85027; 86593; 86780; 87635; 87811